=== PATIENT | female | born 1990 | race Hispanic/Latino ===

== ENCOUNTER 2021-03-30 09:23 | Emergency (ER) | payer OTHER, MEDICAID ==
[~2021-03-30] VITALS: Ht 165.1 cm; Wt 90.0 kg
[2021-03-30 09:58] LABS: HEMATOCRIT 36.4 % (37.0-47.0); HEMOGLOBIN 11.8 g/dl (12.0-16.0); IMMATURE GRANULOCYTES 1.1 % (0.0-5.0); MEAN CELL VOLUME 95.8 fL CALC (80.0-100.0); MEAN CORPUSCULAR HGB 31.1 pG CALC (26.0-32.0); MEAN CORPUSCULAR HGB CONC 32.4 g/dL CAL (32.0-36.0); NEUT# 10.33 thou/uL (2.00-7.15); RED BLOOD COUNT 3.8 mill/uL (4.20-5.60); RED CELL DISTRI WIDTH 13.4 % (11.5-15.5)
[2021-03-30 10:11] LABS: ALBUMIN 3.3 g/dL (3.2-5.0); ALKALINE PHOSPHATASE 110 u/l (38-126); ANION GAP 8 (6-22 (CALC)); BILIRUBIN, TOTAL 0.3 mg/dL (0.0-1.4); BUN 8 mg/dL (7-17); BUN/CREATININE RATIO 16 (12-20 (CALC)); CARBON DIOXIDE 26 mmol/l (22-30); CHLORIDE 104 mmol/l (95-108); CREATININE 0.5 mg/dL (0.5-1.0); GFR > 60 ML/MIN (>=60 (CALC)); GFR FOR AFR.AMER. > 60 ML/MIN (>=60 (CALC)); POTASSIUM 3.8 mmol/l (3.5-5.1); SGOT/AST 21 u/l (14-36); SODIUM 134 mmol/l (137-146); TOTAL PROTEIN 6.6 g/dL (6.3-8.2)
[2021-03-30 11:17] VITALS: BP 140/80
== END 2021-03-30 11:17 | disposition short-term general hospital (02) | DRG 833 ==
LOC: ED 09:23
PROVIDERS: Emergency Medicine
DX: O26.893 Other specified pregnancy related conditions, third trimester (principal); R10.9 Unspecified abdominal pain; Z3A.00 Weeks of gestation of pregnancy not specified; Z20.822 Contact with and (suspected) exposure to COVID-19

== ENCOUNTER 2022-08-08 20:14 | Emergency (ER) | payer MEDICAID ==
[~2022-08-08] VITALS: Ht 165.1 cm; Wt 160.0 kg
[2022-08-08 20:21] VITALS: BP 130/86
[2022-08-08 20:30] VITALS: BP 122/71
[2022-08-08 21:12] LABS: BASO% 0.3 % (0-3); EOS% 1.1 % (0-8); HEMATOCRIT 40.4 % (37.0-47.0); HEMOGLOBIN 12.7 g/dl (12.0-16.0); IMMATURE GRANULOCYTES 0.1 % (0.0-5.0); LYMPH% 25.6 % (15-41); MEAN CELL VOLUME 90.2 fL CALC (80.0-100.0); MEAN CORPUSCULAR HGB 28.3 pG CALC (26.0-32.0); MEAN CORPUSCULAR HGB CONC 31.4 g/dL CAL (32.0-36.0); MONO% 5.3 % (2-13); NEUT# 4.85 thou/uL (2.00-7.15); NEUT% 67.6 % (42-76); RED BLOOD COUNT 4.48 mill/uL (4.20-5.60); RED CELL DISTRI WIDTH 12.5 % (11.5-15.5)
[2022-08-08 21:31] LABS: ALKALINE PHOSPHATASE 68 u/l (38-126); AMYLASE 57 u/l (30-110); ANION GAP 12 (6-22 (CALC)); BILIRUBIN, TOTAL 0.3 mg/dL (0.02-1.3); BUN 12 mg/dL (7-17); BUN/CREATININE RATIO 19 (12-20 (CALC)); CARBON DIOXIDE 27 mmol/l (22-30); CHLORIDE 105 mmol/l (95-108); CREATININE 0.6 mg/dL (0.5-1.0); GFR FOR AFR.AMER. > 60 ML/MIN (>=60 (CALC)); GFR OTHER RACES > 60 ML/MIN (>=60 (CALC)); POTASSIUM 3.7 mmol/l (3.5-5.1); SGOT/AST 24 u/l (14-36); SODIUM 140 mmol/l (137-146); TOTAL PROTEIN 7.9 g/dL (6.3-8.2)
[2022-08-08 21:32] LABS: ALBUMIN 4.6 g/dL (3.2-5.0)
[2022-08-08 22:57] LABS: URINE BILIRUBIN - DIPSTICK NEGATIVE (NEGATIVE); URINE BLOOD DIPSTICK TRACE-INTACT (NEGATIVE); URINE COLOR YELLOW; URINE GLUCOSE - DIPSTICK NEGATIVE (NEGATIVE); URINE KETONE NEGATIVE (NEGATIVE); URINE LEUK ESTERASE NEGATIVE (NEGATIVE); URINE PROTEIN - DIPSTICK NEGATIVE (NEG-TRACE); URINE UROBILINOGEN - DIPSTICK 0.2 E.U./dL (0.2)
[2022-08-08 23:00] LABS: URINE NITRITE - DIPSTICK NEGATIVE (Negative)
[2022-08-08] MEDS ORDERED: LOMOTIL2.5 MG PO (23:54)
[2022-08-08] MEDS ORDERED: ONDANSETRON4 MG PO (23:54)
[2022-08-09 00:19] VITALS: BP 118/77
== END 2022-08-09 00:25 | disposition home or self-care (01) ==
LOC: ED 20:14
PROVIDERS: Emergency Medicine
DX: K52.9 Noninfective gastroenteritis and colitis, unspecified (principal); Z20.822 Contact with and (suspected) exposure to COVID-19
CPT/HCPCS: Q9967; S0164

== ENCOUNTER 2022-09-06 16:12 | Emergency (ER) | payer MEDICAID ==
[~2022-09-06] VITALS: Ht 165.1 cm; Wt 78.6 kg
[~2022-09-06 16:12] MED LIST: LOMOTIL2.5 MG PO; ONDANSETRON4 MG PO
[2022-09-06 16:47] VITALS: BP 118/77
[2022-09-06] MEDS ORDERED: BACTRIM DS1 TAB PO (17:02)
== END 2022-09-06 16:50 | disposition home or self-care (01) ==
LOC: ED 16:12
DX: N75.1 Abscess of Bartholin's gland (principal)